=== PATIENT | female | born 1990 | race Caucasian/White ===

== ENCOUNTER 2016-12-07 17:10 | Emergency (ER) | payer OTHER ==
[2016-12-07 18:42] LABS: BASOPHIL % 0.8 % (0-2); PLATELET COUNT 303 x10^3mcL (130-400)
[2016-12-07 19:03] LABS: RED CELL DISTRIBUTION WIDTH 15.1 % (11.5-14.5)
[2016-12-07 20:48] VITALS: BP 118/79
== END 2016-12-07 20:48 | disposition home or self-care (01) ==
LOC: ED 17:10
PROVIDERS: Emergency Medicine
DX: O72.2 Delayed and secondary postpartum hemorrhage (principal)
CPT/HCPCS: 36415

== ENCOUNTER 2017-06-18 23:05 | Emergency (ER) | payer MEDICAID ==
[~2017-06-18] VITALS: Ht 162.6 cm; Wt 55.3 kg
[2017-06-18 23:11] VITALS: BP 115/49; Ht 162.6 cm; Wt 55.3 kg
== END 2017-06-19 00:56 | disposition left against medical advice (07) ==
LOC: ED 23:05
DX: Z53.21 Procedure and treatment not carried out due to patient leaving prior to being seen by health care provider (principal)

== ENCOUNTER 2017-06-19 04:04 | Emergency (ER) | payer MEDICAID ==
[~2017-06-19] VITALS: Ht 162.6 cm; Wt 55.3 kg
[2017-06-19 04:09] VITALS: Ht 162.6 cm; Wt 55.3 kg
[2017-06-19 05:11] VITALS: BP 114/75
== END 2017-06-19 05:11 | disposition home or self-care (01) ==
LOC: ED 04:04
DX: S63.610A Unspecified sprain of right index finger, initial encounter (principal); Y08.89XA Assault by other specified means, initial encounter; Y93.89 Activity, other specified; Y92.89 Other specified places as the place of occurrence of the external cause; Y99.8 Other external cause status
CPT/HCPCS: 90715

== ENCOUNTER 2017-07-31 09:01 | Emergency (ER) | payer OTHER ==
[~2017-07-31] VITALS: Ht 162.6 cm; Wt 56.7 kg
[2017-07-31 09:06] VITALS: Ht 162.6 cm; Wt 56.7 kg
[2017-07-31 09:46] LABS: BASOPHIL % 0.2 % (0-2); PLATELET COUNT 266 x10^3mcL (130-400); RED CELL DISTRIBUTION WIDTH 12.6 % (11.5-14.5)
[2017-07-31 09:57] LABS: CALCIUM 8.9 mg/dL (8.5-10.1); CARBON DIOXIDE 26.5 mmol/L (21-32); CHLORIDE SERUM 105 mmol/L (98-107); CREATININE SERUM 0.8 mg/dL (0.6-1.0); GFR1 > 60 mL/min; GLUCOSE SERUM 98 mg/dL (74-106); POTASSIUM SERUM 3.8 mmol/L (3.5-5.1); SODIUM SERUM 138 mmol/L (136-145)
[2017-07-31 10:02] LABS: ALBUMIN 3.8 g/dL (3.4-5.0); ALKALINE PHOSPHATASE 81 U/L (46-116); ALT/SGPT 23 U/L (14-59); AST/SGOT 21 U/L (15-37); BILIRUBIN TOTAL 0.3 mg/dL (0.20-1.00); LIPASE 93 IU/L (73-393); TOTAL PROTEIN, SERUM 7.3 g/dL (6.4-8.2)
[2017-07-31 13:37] VITALS: BP 128/74
== END 2017-07-31 13:37 | disposition home or self-care (01) ==
LOC: ED 09:01
PROVIDERS: Specialist
DX: R10.31 Right lower quadrant pain (principal); R11.2 Nausea with vomiting, unspecified
CPT/HCPCS: Q0092; Q0162

== ENCOUNTER 2017-08-01 13:03 | Emergency (ER) | payer OTHER ==
[~2017-08-01] VITALS: Ht 162.6 cm; Wt 56.7 kg
[2017-08-01 13:07] VITALS: Ht 162.6 cm; Wt 56.7 kg
[2017-08-01 15:55] VITALS: BP 103/55
== END 2017-08-01 15:47 | disposition home or self-care (01) ==
LOC: ED 13:03
DX: B08.5 Enteroviral vesicular pharyngitis (principal)
CPT/HCPCS: Q0162

== ENCOUNTER 2017-11-10 13:09 | Emergency (ER) | payer MEDICAID ==
[~2017-11-10] VITALS: Ht 162.6 cm; Wt 58.5 kg
[2017-11-10 13:14] VITALS: BP 110/74; Ht 162.6 cm; Wt 58.5 kg
== END 2017-11-10 14:00 | disposition home or self-care (01) ==
LOC: ED 13:09
DX: L25.9 Unspecified contact dermatitis, unspecified cause (principal)

== ENCOUNTER 2018-05-14 16:46 | Emergency (ER) | payer MEDICAID ==
[~2018-05-14] VITALS: Ht 162.6 cm; Wt 58.1 kg
[2018-05-14 17:03] VITALS: Ht 162.6 cm; Wt 58.1 kg
[2018-05-14 18:52] VITALS: BP 118/68
== END 2018-05-14 18:52 | disposition home or self-care (01) ==
LOC: ED 16:46
DX: N94.6 Dysmenorrhea, unspecified (principal); N89.8 Other specified noninflammatory disorders of vagina
CPT/HCPCS: 87491; 87591; J0696

== ENCOUNTER 2018-07-24 17:36 | Emergency (ER) | payer MEDICAID ==
[~2018-07-24] VITALS: Ht 162.6 cm; Wt 60.3 kg
[2018-07-24 17:45] VITALS: Ht 162.6 cm; Wt 60.3 kg
[2018-07-24 18:17] LABS: microscopic required? NO
[2018-07-24 18:25] LABS: urine erythrocyte NEGATIVE (NEGATIVE)
[2018-07-24 18:27] LABS: BASOPHIL % 0.6 % (0-2); PLATELET COUNT 272 x10^3mcL (130-400); RED CELL DISTRIBUTION WIDTH 15.1 % (11.5-14.5)
[2018-07-24 18:33] LABS: CALCIUM 8.9 mg/dL (8.5-10.1); CARBON DIOXIDE 25.2 mmol/L (21-32); CHLORIDE SERUM 104 mmol/L (98-107); CREATININE SERUM 0.7 mg/dL (0.6-1.0); GFR1 > 60 mL/min; GLUCOSE SERUM 89 mg/dL (74-106); POTASSIUM SERUM 3.5 mmol/L (3.5-5.1); SODIUM SERUM 139 mmol/L (136-145)
[2018-07-24 18:38] LABS: ALBUMIN 3.7 g/dL (3.4-5.0); ALKALINE PHOSPHATASE 68 U/L (46-116); ALT/SGPT 25 U/L (14-59); AST/SGOT 14 U/L (15-37); BILIRUBIN TOTAL 0.35 mg/dL (0.20-1.00); LIPASE 116 IU/L (73-393); TOTAL PROTEIN, SERUM 7.3 g/dL (6.4-8.2)
[2018-07-24 19:45] VITALS: BP 120/70
== END 2018-07-24 21:13 | disposition home or self-care (01) ==
LOC: ED 17:36
PROVIDERS: Emergency Medicine
DX: R10.30 Lower abdominal pain, unspecified (principal); R51 Headache; R42 Dizziness and giddiness
CPT/HCPCS: 36415; 87491; 87591; J1885

== ENCOUNTER 2018-09-05 19:54 | Emergency (ER) | payer MEDICAID ==
[~2018-09-05] VITALS: Ht 162.6 cm; Wt 58.1 kg
[2018-09-05 19:57] VITALS: Ht 162.6 cm; Wt 58.1 kg
[2018-09-05 20:46] LABS: BASOPHIL % 0.4 % (0-2); PLATELET COUNT 280 x10^3mcL (130-400); RED CELL DISTRIBUTION WIDTH 14.8 % (11.5-14.5)
[2018-09-05 20:56] LABS: UA SPECIFIC GRAVITY 1.025 (1.005-1.035); microscopic required? YES; urine erythrocyte 2+ (NEGATIVE)
[2018-09-05 21:12] LABS: CALCIUM 8.5 mg/dL (8.5-10.1); CARBON DIOXIDE 29.9 mmol/L (21-32); CHLORIDE SERUM 106 mmol/L (98-107); CREATININE SERUM 0.7 mg/dL (0.6-1.0); GFR1 > 60 mL/min; GLUCOSE SERUM 108 mg/dL (74-106); POTASSIUM SERUM 3.8 mmol/L (3.5-5.1); SODIUM SERUM 143 mmol/L (136-145)
[2018-09-05 21:17] LABS: ALKALINE PHOSPHATASE 67 U/L (46-116); ALT/SGPT 16 U/L (14-59); AST/SGOT 19 U/L (15-37); BILIRUBIN TOTAL 0.4 mg/dL (0.20-1.00); LIPASE 54 IU/L (73-393); TOTAL PROTEIN, SERUM 6.4 g/dL (6.4-8.2)
[2018-09-05 21:18] LABS: ALBUMIN 3.3 g/dL (3.4-5.0)
[2018-09-05 22:19] VITALS: BP 107/65
== END 2018-09-05 22:19 | disposition home or self-care (01) ==
LOC: ED 19:54
PROVIDERS: Emergency Medicine
DX: N39.0 Urinary tract infection, site not specified (principal); F17.210 Nicotine dependence, cigarettes, uncomplicated
CPT/HCPCS: J0696; J1885; J2405; J7030

== ENCOUNTER 2018-12-01 11:10 | Emergency (ER) | payer MEDICAID ==
[~2018-12-01] VITALS: Ht 162.6 cm; Wt 59.0 kg
[2018-12-01 11:17] VITALS: Ht 162.6 cm; Wt 59.0 kg
[2018-12-01 12:14] VITALS: BP 118/84
== END 2018-12-01 12:14 | disposition home or self-care (01) ==
LOC: ED 11:10
DX: N39.0 Urinary tract infection, site not specified (principal); N93.8 Other specified abnormal uterine and vaginal bleeding
CPT/HCPCS: J1885; Q0162

== ENCOUNTER 2018-12-02 14:03 | Emergency (ER) | payer MEDICAID ==
[~2018-12-02] VITALS: Ht 162.6 cm; Wt 59.9 kg
[2018-12-02 14:09] VITALS: Ht 162.6 cm; Wt 59.9 kg
[2018-12-02 14:53] LABS: UA SPECIFIC GRAVITY 1.025 (1.005-1.035); microscopic required? YES; urine erythrocyte 3+ (NEGATIVE)
[2018-12-02 15:51] LABS: BASOPHIL % 0.3 % (0-2); PLATELET COUNT 297 x10^3mcL (130-400)
[2018-12-02 15:54] LABS: RED CELL DISTRIBUTION WIDTH 15.8 % (11.5-14.5)
[2018-12-02 16:20] VITALS: BP 132/77
== END 2018-12-02 16:20 | disposition home or self-care (01) ==
LOC: ED 14:03
PROVIDERS: Emergency Medicine
DX: N93.8 Other specified abnormal uterine and vaginal bleeding (principal)
CPT/HCPCS: 36415; J1885; Q0162